=== PATIENT | female | born 1945 | race Caucasian/White ===

== ENCOUNTER → 2020-08-01 | Outpatient (CLI) | payer MEDICARE ==
[2014-03-04 10:45] VITALS: BP 122/65
[~2020-08-01] MED LIST: AMLO-186 PO; ASCO100T4 PO; ASPI-482 PO; ATOR40TA59 PO; CHOL400C2 PO; CHRO400T6 PO; COPP2CAP PO; DOCU-109 PO; FOLI1TAB16 PO; FURO-68 PO; GADOTERATE 7.5 MMOL/15ML VIAL. IVP ONE; GLIM4TAB8 PO; HYDR-2679 PO; HYDR12.58 PO; IBUP-1027 PO; LACT1CAP6 PO; LISI10TA16 PO; LISI1TAB37 PO; MAGN27TA3 PO; MALIC ACID; METF10007 PO; OMEG500C PO; SELE200T10 PO; UBID100C26 PO; UBIQ100C3 PO; VITA1TAB19 PO; VITA400T4 PO; ZINC50TA33 PO; [UNRECOGNIZED DRUG - CODE] PO; [UNRECOGNIZED DRUG - OTHER]; [UNRECOGNIZED DRUG - OTHER]; curcumin; l-lysine; manganese
--- NOTE | 2020-08-01 11:21 | KCIC ---
MRI LUMBAR SPINE WITHOUT AND WITH IV CONTRAST History: Reason: LUMBAR RADICULOPATHY / Spl. Instructions: / History: LBP after recent falls. BLE pa in, L>R. 20cc Clariscan Technique: Multiplanar, multi sequential MR imaging was performed of the lumbar spine without and wit h intravenous contrast. Comparison: September 05, 2015 Findings: Interval postoperative changes intervertebral device placement at L3-L4. Increased severe degenerativ e endplate edema L3-L4. There is remodeling of the endplates. No acute fracture. Increased grade 1 an terolisthesis L4 on L5. Unchanged grade 1 anterolisthesis L4 on L5. Conus terminates at the normal location. No evidence of nerve root clumping. No pathologic enhancemen t. Left renal cyst. T12-L1: Small disc bulge eccentric to the left. No canal narrowing. Mild facet arthropathy. No neurof oraminal narrowing. L1-L2: Minimal disc bulge. Mild facet arthropathy. No canal or neuroforaminal narrowing. L2-L3: Broad-based disc bulge. Advanced facet arthropathy. Bilateral facet joint effusions. Severe canal narrowing. Severe subarticu lar recess narrowing. Moderate bilateral neuroforaminal narrowing. L3-L4: Anterolisthesis. Disc uncovering. Disc extrusion extending superiorly. Postoperative changes left hemilaminectomy. Enhancement along the left posterior epidural space. Moderate to severe canal n arrowing. Severe subarticular recess narrowing. Advanced facet arthropathy. Severe right and moderate left neuroforaminal narrowing L4-L5: Anterolisthesis. Disc uncovering. Disc bulge. Mild canal narrowing. Subarticular recess narro wing. Advanced facet arthropathy. No neuroforaminal narrowing. L5-S1: Disc height loss. Advanced left greater than right facet arthropathy. No canal narrowing. No neuroforaminal narrowing. Overall progression of degenerative changes compared to 2016. Impression: 1. Postoperative changes L3-L4 with increased severe degenerative endplate edema and endplate remode ling as well as increased grade 1 anterolisthesis contributing to increased moderate to severe canal narrowing. 2. Increased L2-L3 severe canal narrowing. 3. Multilevel neuroforaminal narrowing most prominent L3-L4, right greater than left. 4. Grade 1 anterolisthesis L4 on L5, unchanged. Electronically signed by: Jaret De La Rosa DO (08/01/2020 11:19 AM) [id number]
== END ==
LOC: KCIC MRI 07:58
PROVIDERS: ATTEND Neurological Surgery
DX: M47.27 Other spondylosis with radiculopathy, lumbosacral region (principal); M43.16 Spondylolisthesis, lumbar region; M48.061 Spinal stenosis, lumbar region without neurogenic claudication
CPT/HCPCS: 72158; 82565; A9575